=== PATIENT | male | born 1985 | race Caucasian/White ===

== ENCOUNTER 2019-12-15 03:08 | Emergency (ER) | payer BC, OTHER ==
--- OUTSIDE RECORDS SUMMARY | 2019-12-15 03:18 | XMS ---
:1985 Author Organization [facility] Support Name Relationship Address Phone [employer] Unavailable [address] [place] [address] IRVIN GUAJARDO MOTHER [address] [place] [address] Re-disclosure Warning The records that you are about to access may contain information from federally- assisted alcohol or drug abuse programs. If such information is present, then the following federally mandated warning applies: This information has been disclosed to you from records protected by federal confidentiality rules (42 CFR part 2). The federal rules prohibit you from making any further disclosure of this information unless further disclosure is expressly permitted by the written consent of the person to whom it pertains or as otherwise permitted by 42 CFR part 2. A general authorization for the release of medical or other information is NOT sufficient for this purpose. The Federal rules restrict any use of the information to criminally investigate or prosecute any alcohol or drug abuse patient.The records that you are about to access may contain highly sensitive health information, the redisclosure of which is protected by Article 27-F of the [facility] Public Health law. If you continue you may haveaccess to information: Regarding HIV / AIDS; Provided by facilities licensed or operated by the [facility] Office of Mental Health; or Provided by the [facility] Office for People With Developmental Disabilities. If such information is present, then the following [facility] mandated warning applies: This information has been disclosed to you from confidential records which are protected by state law. State law prohibits you from making any further disclosure of this information without the specific written consent of the person to whom it pertains, or as otherwise permitted by law. Any unauthorized further disclosure in violation of state law may result in a fine or detention sentence or both. A general authorization for the release of medical or other information is NOT sufficient authorization for further disclosure. Insurance Providers Payer name Policy type / Policy ID Covered Covered green party's Policy Plan Coverage type green party ID relationship to [employer] Information saxena PPO [id number] SP [id number] Results ID Date Data Source [id number] 08/16/2019 12:00:00 AM EDT [facility] Name Value Range Interpretation Code Description Data Nancy rce(s) Supporting Document(s ) [facility] XXX ANTHONY+probe- Imp This lab was ordered by [facility] and reported by [employer] ID Date Data Source [id number] 08/03/2019 12:00:00 AM EDT [facility] Name Value Range Interpretation Code Description Data Nancy rce(s) Supporting Document(s ) [facility] RNA XXX ANTHONY+probe- Imp This lab was ordered by [facility] and reported by [employer] Procedure
--- NOTE | 2019-12-15 03:19 | PDOC ---
Attending Attestation - Resident Resident Name: Antonio Stroud - ED Attending Attestation I have performed the following: I have examined & evaluated the patient, The case was reviewed & discussed with the resident, I agree w/resident's findings & plan - HPI HPI: 12/15/19 23:23 Pt comes with right sided chest pain that began at work. 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 - Physicial Exam PE: 12/15/19 23:24 Agree with resident exam Pt has costochondral pain pt likely has costochondritis Pt has normal clear lungs bilat heart RRR no abd pain No skin rashes - Medical Decision Making 12/15/19 23:25 Home with nsaids 12/15/19 23:25 CXR normal Heart Score/ECG Review - ECG Intrepretation Rhythm: Regular Rhythm - [place]: Normal - P and MT Prominent R with upright T in V1 (true posterior MS): No - QRS Poor R Wave Progression: No Q Wave Present: No - ST and T Early Repolarization: No Non Specific ST-T Wave changes: No - ECG Impressions Normal ECG: Yes Non-specific ST Elevation: No Ischemic Changes: No Bradycardia: No Torsades gurmeet Pointes: No WPW: No Discharge - Discharge Information Problems reviewed: Yes Clinical Impression/Diagnosis: Musculoskeletal chest pain Condition: Good Disposition: HOME - Follow up/Referral Referrals: Nilson Carver MD [Primary Care Provider] - - Patient Discharge Instructions Patient Printed Discharge Instructions: DI for Atypical Chest Pain Additional Instructions: You were seen in the emergency department for chest pain. You received pain medication. Your labs and imaging showed findings for atypical chest pain. This can be caused by muscle strain. As such you were treated for musculoskeletal pain. You were given pain medication in the emergency department. Please follow up with your primary care physician and regarding your visit to the emergency department. If you experience profound chest pain, shortness of breath, numbness or tingling in the arms or legs, loss of vision please return to the emergency department or call 911. - Post Discharge Activity Work/Back to School Note: Back to Work
[2019-12-15 03:29] VITALS: BP 119/71; PULSE 77; TEMP 98; BMI 30.9
--- NOTE | 2019-12-15 03:50 | PDOC ---
History of Present Illness <Ilda Jacobsenie - Last Filed: 12/15/19 05:43> - General History Source: Patient Exam Limitations: No Limitations - History of Present Illness Initial Comments: 12/15/19 03:42 34 y.o. M no significant PMHx Presenting due to R sided chest pain. Patient states the pain started last night when he was at work. Patient states the pain is R sided non radiating, worse with positional changes and deep inspiration. He has been using his toolbox which he carries with his R arm while at work. Patient denies headache, SOB, N/V/D. PCP: Dr. Carver PMHx: None Meds: In Chart Allergies: NKDA <MaximusAntonio - Last Filed: 12/15/19 05:51> - General Stated Complaint: CHEST PAIN Time Seen by Provider: 12/15/19 03:16 Past History <Ilda Jacobsenie - Last Filed: 12/15/19 05:43> - Medical History Anemia: No Asthma: No Cancer: No Cardiac Disorders: No CVA: No COPD: No CHF: No Dementia: No Diabetes: No GI Disorders: Yes (RECTAL BLEEDING) Disorders: No HTN: No Hypercholesterolemia: No Liver Disease: No Seizures: No Thyroid Disease: No - Surgical History Cardiac Surgery: Yes (OPEN HEART/THORACOTOMY FOR REMOVAL OF TISSUE SURROUNDING THE HEART) - Psycho-Social/Smoking History Smoking History: Unknown if ever smoked Have you smoked in the past 12 months: No <MaximusAntonio - Last Filed: 12/15/19 05:51> - Medical History Allergies/Adverse Reactions: Allergies Allergy/AdvReac Type Severity Reaction Status Date / Time No Known Drug Allergies Allergy Verified 12/15/19 04:12 Home Medications: Ambulatory Orders NK [No Known Home Medication] 11/11/14 Review of Systems - Review of Systems Able to Perform ROS?: Yes Is the patient limited Thai proficient: Yes Constitutional: No: Chills, Fever HEENTM: No: Blurred Vision, Double Vision Respiratory: No: Cough, Shortness of Breath, Wheezing Cardiac (ROS): Yes: Chest Pain. No: Lightheadedness ABD/GI: No: Constipated, Diarrhea, Nausea, Vomiting : No: Burning, Dysuria Musculoskeletal: No: Muscle Pain, Muscle Weakness Neurological: No: Headache, Paresthesia, Tingling, Tremors, Dizziness Hematologic/Lymphatic: No: Blood Clots, Easy Bleeding, Easy Bruising <Antonio Stroud - Last Filed: 12/15/19 05:51> *Physical Exam - Vital Signs Last Vital Signs Temp Pulse Resp BP Pulse Ox 98.0 F 77 16 119/71 100 12/15/19 03:26 12/15/19 03:26 12/15/19 03:26 12/15/19 03:26 12/15/19 03:26 <Katalina Jacobsen - Last Filed: 12/15/19 05:43> - Vital Signs Last Vital Signs Temp Pulse Resp BP Pulse Ox 98.0 F 77 16 119/71 100 12/15/19 03:26 12/15/19 03:26 12/15/19 03:26 12/15/19 03:26 12/15/19 03:26 - Physical Exam General Appearance: Yes: Nourished, Appropriately Dressed. No: Apparent Distress Respiratory/Chest: positive: Chest Tender, Lungs Clear, Normal Breath Sounds. negative: Accessory Muscle Use, Crackles, Rales, Stridor, Wheezing Cardiovascular: positive: Regular Rhythm, Regular Rate. negative: Edema, JVD, Murmur Gastrointestinal/Abdominal: positive: Normal Bowel Sounds, Flat, Soft. negative: Tender, Distended, Guarding, Rebound, Tenderness Musculoskeletal: positive: Normal Inspection. negative: CVA Tenderness Extremity: positive: Normal Inspection. negative: Tender, Coldness, Swelling, Calf Tenderness Integumentary: positive: Normal Color, Dry, Warm Neurologic: positive: Fully Oriented, Alert, Normal Mood/Affect, Normal Response <Antonio Stroud - Last Filed: 12/15/19 05:51> ED Treatment Course - LABORATORY CBC & Chemistry Diagram: 12/15/19 03:30 12/15/19 03:30 - ADDITIONAL ORDERS Additional order review: Laboratory Results 12/15/19 03:30 Sodium 139 Potassium 4.1 Chloride 107 Carbon Dioxide 27 Anion Gap 5 L BUN 16.4 Creatinine 1.1 Est GFR (CKD-EPI)AfAm 100.97 Est GFR (CKD-EPI)NonAf 87.12 Random Glucose 105 Calcium 8.9 Total Bilirubin 0.3 AST 19 ALT 18 Alkaline Phosphatase 65 Troponin I < 0.02 Total Protein 7.5 Albumin 3.8 12/15/19 03:30 RBC 5.24 MCV 78.2 L MCHC 33.2 RDW 15.5 MPV 9.8 Neutrophils % 55.2 Lymphocytes % 34.3 Monocytes % 7.4 Eosinophils % 2.6 Basophils % 0.5 - RADIOLOGY Radiology Studies Ordered: Category Date Time Status CXRPORT [CHEST X-RAY PORTABLE*] [RAD] Stat Radiology 12/15/19 03:26 Taken - Medications Given in the ED: ED Medications Discontinued Medications Generic Name Dose Route Start Last Admin Trade Name Asim PRN Reason Stop Dose Admin Ketorolac Tromethamine 30 mg 12/15/19 04:11 12/15/19 04:19 Toradol Injection - IVPUSH 12/15/19 04:12 30 mg ONCE ONE Administration Lidocaine 1 patch 12/15/19 04:11 12/15/19 04:19 Lidoderm Patch - TP 12/15/19 04:12 1 patch ONCE ONE Administration <Katalina Jacobsen - Last Filed: 12/15/19 05:43> - LABORATORY CBC & Chemistry Diagram: 12/15/19 03:30 12/15/19 03:30 <Antonio Stroud - Last Filed: 12/15/19 05:51> Medical Decision Making - Medical Decision Making 12/15/19 03:52 34 y.o. M no significant PMHx Presenting due to R sided chest pain. DDx: Musculoskeletal injury, Costochondritis, ACS, [place] Labs: WBC 8.6, Na 139, K 4.1 EKG: NS 1st degree block, QTc 432, rate 77 CXR: No acute pathology Dispo: D/C home 12/15/19 05:43 <Antonio Stroud - Last Filed: 12/15/19 05:51> Discharge <Katalina Jacobsen - Last Filed: 12/15/19 05:43> - Discharge Information Problems reviewed: Yes - Admission No <Antonio Stroud - Last Filed: 12/15/19 05:51> - Discharge Information Clinical Impression/Diagnosis: Musculoskeletal chest pain Condition: Good Disposition: HOME - Follow up/Referral Referrals: Nilson Carver MD [Primary Care Provider] - - Patient Discharge Instructions Patient Printed Discharge Instructions: DI for Atypical Chest Pain Additional Instructions: You were seen in the emergency department for chest pain. You received pain medication. Your labs and imaging showed findings for atypical chest pain. This can be caused by muscle strain. As such you were treated for musculoskeletal pain. You were given pain medication in the emergency department. Please follow up with your primary care physician and regarding your visit to the emergency department. If you experience profound chest pain, shortness of breath, numbness or tingling in the arms or legs, loss of vision please return to the emergency department or call 911. - Post Discharge Activity Work/Back to School Note: Back to Work
[2019-12-15 03:52] LABS: BASO % 0.5 % (0-2.0); EOS % 2.6 % (0-4.5); HEMOGLOBIN 13.6 GM/dL (11.7-16.9); LYMPH % 34.3 % (8-40); MCH 25.9 pg (25.7-33.7); MCHC 33.2 g/dl (32.0-35.9); MEAN CELL VOLUME 78.2 fl (80-96); MEAN PLT VOLUME 9.8 fl (7.5-11.1); MONO % 7.4 % (3.8-10.2); NEUT % 55.2 % (42.8-82.8); PLATELET COUNT 180 K/MM3 (134-434); RBC 5.24 M/mm3 (4.00-5.60); RDW 15.5 % (11.9-15.9); WHITE BLOOD COUNT 8.6 K/mm3 (4.0-10.0)
[2019-12-15 04:08] LABS: CALCIUM 8.9 mg/dL (8.5-10.1); CHLORIDE 107 mmol/L (98-107); POTASSIUM 4.1 mmol/L (3.5-5.1); SODIUM 139 mmol/L (136-145)
[2019-12-15] MEDS ORDERED: KETOROLAC TROMETHAMINE 30 MG/1 ML VIAL IVPUSH ONE (04:11)
[2019-12-15] MEDS ORDERED: LIDOCAINE 5% TOPICAL PATCH TP ONE (04:11)
[2019-12-15 04:14] LABS: ALBUMIN 3.8 g/dl (3.4-5.0); ALK PHOS 65 U/L (45-117); ANION GAP 5 MMOL/L (8-16); BILIRUBIN,TOTAL 0.3 mg/dL (0.2-1); BLOOD UREA NITROGEN 16.4 mg/dL (7-18); CO2 27 mmol/L (21-32); CREATININE 1.1 mg/dL (0.55-1.3); GLUCOSE,RANDOM 105 mg/dL (74-106); SGOT/AST 19 U/L (15-37); SGPT/ALT 18 U/L (13-61); TOT PROT 7.5 g/dl (6.4-8.2)
[2019-12-15] MEDS ORDERED: KETOROLAC TROMETHAMINE 30 MG/1 ML VIAL ONE (04:14)
[2019-12-15] MEDS ORDERED: LIDOCAINE 5% TOPICAL PATCH ONE (04:14)
[2019-12-15] MEDS ORDERED: LIDOCAINE PATCH REMOVAL MC SCH (22:00)
--- NOTE | 2019-12-16 21:37 | EKG ---
Test Reason : Blood Pressure : / mmHG Vent. Rate : 077 BPM Atrial Rate : 077 BPM P-R Int : 214 ms QRS Dur : 096 ms QT Int : 382 ms P-R-T Axes : 054 026 047 degrees QTc Int : 432 ms SINUS RHYTHM WITH 1ST DEGREE A-V BLOCK OTHERWISE NORMAL ECG NO PREVIOUS ECGS AVAILABLE Confirmed by YE MONTES DE OCA, THUAN ([id number]) on 12/16/2019 9:36:30 PM Referred By: Confirmed By:THUAN BELCHER MD
== END 2019-12-15 05:54 | disposition home or self-care (01) ==
LOC: JER 03:08
PROC: 3E0333Z Introduction of Anti-inflammatory into Peripheral Vein, Percutaneous Approach (ICD-10-PCS; principal; 2019-12-15)
DX: R07.89 Other chest pain (principal)
CPT/HCPCS: 36415; 71045-TC-FY; 80053; 84484; 85025; 93005; 93010; 99285-25